=== PATIENT | female | born 1975 | race Caucasian/White ===

== ENCOUNTER → 2021-01-05 | Outpatient (CLI) | payer OTHER ==
[~2021-01-05] MED LIST: LEVAQUIN750 MG PO
== END ==
LOC: KOH-I 08:13
DX: M54.2 Cervicalgia (principal); M25.531 Pain in right wrist; M54.6 Pain in thoracic spine; S62.336D Displaced fracture of neck of fifth metacarpal bone, right hand, subsequent encounter for fracture with routine healing
CPT/HCPCS: 72040; 72070; 73110; 73130